=== PATIENT | male | born 1950 | race Caucasian/White ===

== ENCOUNTER 2016-08-06 10:28 | Inpatient (IN) | payer MEDICAID ==
[2016-08-06] MEDS ORDERED: ZOFRAN IV ONE (11:15)
[2016-08-06] MEDS ORDERED: MORPHINE IV ONE (11:15)
[2016-08-06] MEDS ORDERED: NITRO-BID 2% TP ONE (11:15)
--- NOTE | 2016-08-06 11:23 | Emergency Department Report ---
HPI - General Chief Complaint: Chest Pain Time Seen by Provider: 08/06/16 11:02 - [facility] HPI: Room 23 The patient is a 66-year-old male presenting with a chief complaint of chest pain. The patient states he developed substernal chest pressure when he began walking to his backyard. Patient states she became short of breath and diaphoretic with pressure. Patient denies nausea or vomiting. Patient states he felt like he was going to pass out but never lost consciousness. Patient states he sat down and rested began to feel better. The patient got up to walk to his room in the chest pressure restarted. EMS was called and the patient was transported to the ED. The patient states he still has slight chest pain currently gives a score of 2-3/10. Patient denies ever having a stress test or cardiac catheterization Location: Substernal chest Duration: Intermittent since this morning Quality: Pressure Severity:2-3/10 Modifying factors: [see above] Context: [see above] Mode of transportation: [not driving] ED Past Medical Hx - Past Medical History Previous Medical History?: Yes Hx Hypertension: Yes Hx Diabetes: Yes Additional medical history: high chol. psoriasis. Obstructive sleep apnea on CPAP - Surgical History Past Surgical History?: No - Family History Family history: no significant - Social History Smoking Status: Never Smoker Substance Use Type: None ED Review of Systems ROS: Stated complaint: CHEST PAIN/SOB Other details as noted in HPI Comment: All other systems reviewed and negative Constitutional: diaphoresis Eyes: denies: eye pain, eye discharge, vision change ENT: denies: ear pain, throat pain Respiratory: shortness of breath Cardiovascular: chest pain Endocrine: no symptoms reported Gastrointestinal: denies: abdominal pain, nausea, diarrhea Genitourinary: denies: urgency, dysuria Musculoskeletal: denies: back pain, joint swelling, arthralgia Skin: denies: rash, lesions Neurological: denies: headache, weakness, paresthesias Psychiatric: denies: anxiety, depression Hematological/Lymphatic: denies: easy bleeding, easy bruising Physical Exam - Physical Exam Vital Signs: Vital Signs 08/06/16 10:55 Temperature 98.1 F Pulse Rate 117 H Respiratory 26 H Rate Blood Pressure 130/84 O2 Sat by Pulse 92 Oximetry Physical Exam: GENERAL: The patient is well-developed well-nourished male sitting on stretcher not appearing to be in acute distress. [] HEENT: Normocephalic. Atraumatic. Extraocular motions are intact. Patient has moist mucous membranes. NECK: Supple. Trachea midline CHEST/LUNGS: Clear to auscultation. There is no respiratory distress noted. HEART/CARDIOVASCULAR: Regular. There is tachycardia. There is no gallop rub or murmur. ABDOMEN: Abdomen is soft, nontender. Patient has normal bowel sounds. There is no abdominal distention. SKIN: There is no rash. There is no edema. There is no diaphoresis. NEURO: The patient is awake, alert, and oriented. The patient is cooperative. The patient has normal speech MUSCULOSKELETAL: There is no evidence of acute injury. ED Course Vital Signs 08/06/16 10:55 Temperature 98.1 F Pulse Rate 117 H Respiratory 26 H Rate Blood Pressure 130/84 O2 Sat by Pulse 92 Oximetry ED Medical Decision Making - Lab Data Result diagrams: 08/06/16 11:07 08/06/16 11:07 Laboratory Tests 08/06/16 08/06/16 08/06/16 11:07 11:07 11:07 WBC 11.0 RBC 5.47 H Hgb 17.0 H Hct 51.2 H MCV 94 MCH 31 MCHC 33 RDW 13.8 Plt Count 184 Lymph % (Auto) 10.2 L [place] % (Auto) 7.9 H Eos % (Auto) 0.6 Baso % (Auto) 0.6 Lymph # 1.1 L [place] # 0.9 H Eos # 0.1 Baso # 0.1 Seg Neutrophils % 80.7 H Seg Neutrophils # 8.9 H PT 13.6 INR 1.05 APTT 24.6 D-Dimer Carbon Dioxide 22 BUN 17 Creatinine 1.0 Estimated GFR > 60 BUN/Creatinine Ratio 17.00 Glucose 287 H Calcium 8.9 Total Creatine Kinase CK-MB (CK-2) CK-MB (CK-2) Rel Index Troponin T 0.065 H NT-Pro-B Natriuret Pep Triglycerides 74 Cholesterol 161 LDL Cholesterol Direct 88 HDL Cholesterol 59 Cholesterol/HDL Ratio 2.72 08/06/16 08/06/16 08/06/16 11:07 11:07 11:15 WBC RBC Hgb Hct MCV MCH MCHC RDW Plt Count Lymph % (Auto) [place] % (Auto) Eos % (Auto) Baso % (Auto) Lymph # [place] # Eos # Baso # Seg Neutrophils % Seg Neutrophils # PT INR APTT D-Dimer 2012 H Carbon Dioxide BUN Creatinine Estimated GFR BUN/Creatinine Ratio Glucose Calcium Total Creatine Kinase 126 CK-MB (CK-2) 2.5 CK-MB (CK-2) Rel Index 1.9 Troponin T NT-Pro-B Natriuret Pep 18.43 Triglycerides Cholesterol LDL Cholesterol Direct HDL Cholesterol Cholesterol/HDL Ratio Sodium 137, potassium 4.8, chloride 99.1 - EKG Data -: EKG Interpreted by Me EKG shows normal: sinus rhythm Rate: tachycardia (118 bpm) - EKG Data When compared to previous EKG there are: previous EKG unavailable - Radiology Data Radiology results: report reviewed (CT chest), image reviewed (CT chest) CT chest (received call from radiologist)-good-sized bilateral pulmonary emboli - Differential Diagnosis ACS, PE, pericarditis Critical care attestation.: If time is entered above; I have spent that time in minutes in the direct care of this critically ill patient, excluding procedure time. ED Disposition Clinical Impression: Chest pain, Bilateral pulmonary embolism Disposition: OP ADMITTED IP TO THIS HOSP Is pt being admited?: Yes Does the pt Need Aspirin: Yes Condition: Serious Instructions: Chest Pain (ED) Referrals: PRIMARY CARE, [Primary Care Provider] - 3-5 Days Time of Disposition: 14:55 (hospitalist notified)
[2016-08-06 11:25] LABS: Basophils % (Auto) 0.6 % (0.0-1.8); Eosinophils % (Auto) 0.6 % (0.0-4.3); Hematocrit 51.2 % (35.5-45.6); Mean Corpuscular HGB Conc 33 % (32-34); Mean Corpuscular Hemoglobin 31 pg (28-32); Mean Corpuscular Volume 94 fl (84-94); Platelet Count 184 K/mm3 (140-440); Red Blood Count 5.47 M/mm3 (3.65-5.03); Red Cell Distribution Width 13.8 % (13.2-15.2)
[2016-08-06 11:33] LABS: Anion Gap 20 mmol/L; Blood Urea Nitrogen 17 mg/dL (9-20); Calcium 8.9 mg/dL (8.4-10.2); Carbon Dioxide 22 mmol/L (22-30); Chloride 99.4 mmol/L (98-107); Glucose 287 mg/dL (75-100); Potassium 4.8 mmol/L (3.6-5.0); Sodium 137 mmol/L (137-145)
[2016-08-06 11:35] LABS: INR 1.05 (0.87-1.13); Partial Thromboplastin Time 24.6 Sec. (24.2-36.6)
--- NOTE | 2016-08-06 11:56 | XRay Report ---
AP CHEST: HISTORY: chest pain AP view of the chest demonstrates a normal mediastinal and cardiac contour with clear lungs and normal bony and soft tissue structures. IMPRESSION: Unremarkable AP chest.
[2016-08-06 12:03] LABS: Creatine Kinase MB 2.5 ng/mL (0.0-4.0)
[2016-08-06 12:04] LABS: Cholesterol 161 mg/dL (50-199); HDL Cholesterol 59 mg/dL (40-59); LDL Cholesterol,Direct 88 mg/dL (50-130); Triglycerides 74 mg/dL (2-149)
[2016-08-06] MEDS ORDERED: ASPIRIN PO ONE (12:06)
--- NOTE | 2016-08-06 12:08 | Admit Criteria Form ---
Admission Criteria Documentation: PULMONARY EMBOLISM Clinical Indications for Admission to Inpatient Care (Place 'X' for any and all applicable criteria): Admission is indicated by ANY ONE of the following 1,2,3,4,5 [ ]I. Onset of hypoxia [ ]II. Hemodynamic instability 5 [ ]III. Massive pulmonary embolism (eg, acute embolism causing sustained hypotension, pulselessness, or bradycardia)5 [ ]IV. Need for IV narcotics (eg, to treat dyspnea) [ ]V. Current use of home oxygen therapy [ ]. Active bleeding [ ]VII. Recent surgery [ ]VIII. Active peptic ulcer disease [ ]IX. Documented extensive thrombosis (eg, clot in vena cava or above iliofemoral bifurcation) [ ]X. Embolism while on anticoagulation [ ]XI. 6 [X ]XII. Appropriate monitoring and therapy cannot be provided in home or outpatient setting. [ ]XIII. Systemic or catheter-directed thrombolysis 5,7 [ ]XIV. Catheter embolectomy and fragmentation 6 [ ]XV. Vena cava filter placement5 [ ]XVI. Severely diminished cardiopulmonary reserve (eg, cor pulmonale, pulmonary hypertension) [ ]XVII. Severe renal failure (eg, GFR less than 30 mL/min/1.73m2 (0.5 mL/sec/ 1.73m2)) [ ]XVIII.Right ventricular dysfunction (eg, by echocardiogram) 6,11 [X ]XIX. Positive cardiac biomarker (eg, troponin T or I > 0.1 ng/mL (mcg/L), highly sensitive troponin I assay greater than 0.014 ng/mL (mcg/L), BNP or NT proBNP > assay threshold)5,8,9 [ ]XX. Known clotting abn or def (eg, liver disease, antithrombin III, protein C, or protein S abnormality) [ ]XXI. History of heparin-induced thrombocytopenia [ ]XXII. Inpatient admission required rather than observation care (Also use Pulmonary Embolism: Observation Care guideline as appropriate) because of ANY ONE of the following: [ ] a) Significant autoimmune (thrombocytopenia) or coagulopathic reaction occurs in response to anticoagulation [ ] b) Respiratory symptoms (eg, tachypnea, dyspnea) that are severe or persistent [ ] c) Other condition, treatment, or monitoring requiring inpatient admission Extended stay beyond goal length of stay may be needed for 3,28 [ ]a) Hemorrhage or recent surgery [ ]b) Recurrent thromboembolism [ ]c) Persistent hypoxemia [ ]d) Heparin-induced thrombocytopenia The original [facility] [employer] content created by [facility] [employer] has been revised. The portions of the content which have been revised are identified through the use of italic text or in bold, and [facility] (formerly [facility])[3] has neither reviewed nor approved the modified material. All other unmodified content is copyright [facility] [employer]. Please see references footnoted in the original [facility] edition 2016 Admission Criteria Met: Yes
[2016-08-06] MEDS ORDERED: NACL ONE (14:17)
--- NOTE | 2016-08-06 14:52 | Cat Scan Report ---
CTA CHEST: History: Chest pain, shortness of breath. Technique: Helical CT following IV contrast. Pulmonary embolus protocol. Sagittal and coronal reformatted images. Rotational MIP images. Findings: Contrast bolus is satisfactory. Large bilateral pulmonary emboli are identified extending from the distal main pulmonary arteries to the second and third order branches of both lungs. The right lower lobe appears most affected where occlusive emboli are identified. The thyroid gland, tracheobronchial tree, esophagus, heart, pericardium, aorta, lung su and bony thorax are unremarkable. Impression: Positive for pulmonary embolus. These findings were discussed with Dr. Rodriguez in the emergency department at 1445 hrs.
[2016-08-06] MEDS ORDERED: HEPARIN 10,000 UNITS/10 ML IV ONE (14:53)
[2016-08-06] MEDS ORDERED: HEPARIN/ 0.45% NACL-25,000 UNIT/500 ML 500 ML IV SCH (15:00)
[2016-08-06 15:16] LABS: Urine Drugs of Abuse Note Disclamer
--- NOTE | 2016-08-06 15:18 | History and Physical Report ---
History of Present Illness Date of examination: 08/06/16 Date of admission: 08/06/2016 Chief complaint: chest pain, SOB, near syncope History of present illness: Patient is 66 yo with diabetes, hypertension, hyperlipidemia,sleep apnea on home CPAP. He presents with 1 day history of with chest pain, SOB and near syncope. Chest pain is midsternal, etc. 10, no radiation, pain is pressure-like , worse on exertion. He also describes shortness of breath is also worse on exertion. In addition he had an episode during which he thought he was going to pass out. Because of combination of of symptoms he got worried and was brought to the emergency department for further evaluation. In emergency department CTA of the chest shows bilateral large pulmonary embolism. Discussed with head sawyer automatic Dr. Menchaca and Dr. Cornejo, [facility] S[facility]. He will ting taken to cath lab nurse for EKOS catheter placements and thrombolysis, and admitted to intensive care unit. Past History Past Medical History: diabetes, hypertension, hyperlipidemia, other (sleep apnea on home CPAP, psoriasis) Past Surgical History: tonsillectomy Social history: , smoking (no smoking), alcohol abuse (no alcohol), full code Family history: cancer Medications and Allergies Allergies Allergy/AdvReac Type Severity Reaction Status Date / Time No Known Allergies Allergy Unverified 08/06/16 10:55 Active Meds: Active Medications Heparin Sodium/Sodium Chloride (Heparin/ 0.45% Nacl-25,000 Unit/500 Ml) 500 mls @ 27 mls/hr IV TITR TJ; 1,350 UNITS/HR PRN Reason: Protocol Review of Systems All systems: negative (no fever, no cough, no abdominal pain, no dysuria, no headache,. All other systems reviewed and are negative) Exam - Physical Exam Narrative exam: Gen appearance: Not in acute distress, obese HEENT: Normocephalic,atraumatic Neck : supple, no JVD Lungs: Clear to auscultation bilaterally, no crackles or wheezes. Heart : S1 and S2 regular, tachy, no murmurs rubs or gallop, Abdomen: soft nontender, nondistended, normal bowel sounds Extremities: No edema, no clubbing or cyanosis, Neuro :awake alert oriented 3, no focal signs Psych :appropriate mood skin: diffuse psoriasis rash - Constitutional Vitals: Temp Pulse Resp BP Pulse Ox 98.1 F 110 H 23 120/86 94 08/06/16 10:55 08/06/16 13:16 08/06/16 13:16 08/06/16 13:16 08/06/16 13:16 Results - Labs CBC & Chem 7: 08/06/16 15:16 08/06/16 11:07 Labs: Abnormal lab results 08/06/16 08/06/16 08/06/16 Range/Units 11:07 11:07 11:15 RBC 5.47 H (3.65-5.03) M/mm3 Hgb 17.0 H (11.8-15.2) gm/dl Hct 51.2 H (35.5-45.6) % Lymph % (Auto) 10.2 L (13.4-35.0) % [place] % (Auto) 7.9 H (0.0-7.3) % Lymph # 1.1 L (1.2-5.4) K/mm3 [place] # 0.9 H (0.0-0.8) K/mm3 Seg Neutrophils % 80.7 H (40.0-70.0) % Seg Neutrophils # 8.9 H (1.8-7.7) K/mm3 D-Dimer 2013 H (0-234) ng/mlDDU Glucose 287 H (75-100) mg/dL Troponin T 0.065 H (0.00-0.029) ng/mL Assessment and Plan Bilateral large pulmonary embolism. Admit to ICU. Initially was to be admitted to telemetry, but after discussing with Dr. Cornejo, vascular surgery, patient will be admitted to ICU after getting EKOS catheter placement for thrombolysis. Started on heparin drip. Consulted Pulm and Vasc Surg. I informed and discussed case with Dr. Menchaca and vasc Surg. Get stat Echocardiogram Chest pain with elevated Troponin. May be due to pulmonary embolism. To r/o acute coronary syndrome Obtain serial Troponins. Aspirin given. consult cardiology. Diabetes mellitus type 2. Check fingerstick glucose every 6 hours. Home medication list is not available yet. Hypertension. Blood pressure is stable Hyperlipidemia. Cont home statins. Sleep apnea. Cont CPAP at night DVT prophylaxis. he is on Heparin drip Psoriasis Full code status.
[2016-08-06] MEDS ORDERED: ZOFRAN IV PRN ×2 (15:26→16:10)
[2016-08-06] MEDS ORDERED: TYLENOL PO PRN (15:26)
[2016-08-06] MEDS ORDERED: DULCOLAX PR PRN (15:26)
[2016-08-06] MEDS ORDERED: SODIUM CHLORIDE FLUSH SYRINGE 10 ML IV PRN (15:29)
[2016-08-06 15:32] LABS: Hemoglobin 17.1 gm/dl (11.8-15.2)
[2016-08-06 15:35] LABS: Bilirubin,Urine NEG (Negative); Blood,Urine NEG (Negative); Ketones,Urine NEG (Negative); Leukocyte Esterase,Urine NEG (Negative); Mucus,Urine FEW /HPF; Nitrite,Urine NEG (Negative); Protein,Urine <15 mg/dL mg/dL (Negative); Urobilinogen,Urine < 2.0 mg/dL (<2.0); WBC,Urine < 1.0 /HPF (0.0-6.0)
[2016-08-06 15:40] LABS: INR 1.08 (0.87-1.13)
[2016-08-06 15:41] LABS: Partial Thromboplastin Time 25.7 Sec. (24.2-36.6)
[2016-08-06] MEDS ORDERED: MORPHINE IV PRN ×2 (16:10)
[2016-08-06] MEDS ORDERED: HEPARIN/NS 5000 UNIT/500ML(CATH LAB) 1,000 ML IR ONE (16:10)
[2016-08-06] MEDS ORDERED: SODIUM CHLORIDE ONE (16:10)
[2016-08-06] MEDS ORDERED: HEPARIN ONE (16:10)
[2016-08-06] MEDS ORDERED: NORCO 5/325 PO PRN (16:10)
[2016-08-06] MEDS ORDERED: NACL 0.9% 1000 ML 3,000 ML ONE (16:11)
[2016-08-06] MEDS ORDERED: SUBLIMAZE ONE (16:11)
[2016-08-06] MEDS ORDERED: VERSED ONE (16:11)
[2016-08-06] MEDS ORDERED: XYLOCAINE 2% INFILTRATI ONE (16:11)
[2016-08-06] MEDS ORDERED: ANCEF/STERILE WATER 2 GM/20 ML 20 ML IV ONE (16:11)
[2016-08-06] MEDS ORDERED: HEPARIN 10,000 UNITS/10 ML ONE (16:11)
[2016-08-06] MEDS ORDERED: NACL 0.9% 1000 ML 1,000 ML EKOSCLUMEN SCH ×2 (17:00)
[2016-08-06] MEDS ORDERED: CATHFLO EKOSDLUMEN SCH (17:00)
[2016-08-06] MEDS ORDERED: NACL 0.9% EKOSDLUMEN SCH (17:00)
[2016-08-06] MEDS ORDERED: HEPARIN/ 0.45% NACL-25,000 UNIT/500 ML 500 ML SHEATH SCH ×2 (17:00)
[2016-08-06] MEDS ORDERED: NACL 0.9% 1000 ML 1,000 ML IV SCH (17:00)
[2016-08-06] MEDS ORDERED: NACL 0.9% 1000 ML 1,000 ML SHEATH SCH ×2 (17:00)
[2016-08-06] MEDS ORDERED: WATER FOR INJ (PF) 10 ML ONE (17:11)
[2016-08-06] MEDS: CATHFLO ONE ×2 (17:17→17:19)
[2016-08-06 17:26] LABS: Basophils % (Auto) 0.3 % (0.0-1.8); Eosinophils % (Auto) 0.5 % (0.0-4.3); Hematocrit 50.4 % (35.5-45.6); Hemoglobin 16.7 gm/dl (11.8-15.2); Mean Corpuscular HGB Conc 33 % (32-34); Mean Corpuscular Hemoglobin 31 pg (28-32); Mean Corpuscular Volume 94 fl (84-94); Platelet Count 186 K/mm3 (140-440); Red Blood Count 5.35 M/mm3 (3.65-5.03); Red Cell Distribution Width 13.9 % (13.2-15.2); White Blood Count 10.8 K/mm3 (4.5-11.0)
--- NOTE | 2016-08-06 17:32 | Operative Report ---
Operative Report Operative Report: EXAM: ULTRASOUND AND FLUOROSCOPIC GUIDED PLACEMENT OF BILATERAL PULMONARY EKOS CATHETERS, PULMONARY ANGIOGRAPHY CLINICAL INDICATION: PATIENT WITH SUB-MASSIVE PULMONARY EMBOLI BILATERALLY, CT EVIDENCE OF RIGHT HEART STRAIN, DIAPHORESIS AND TACHYCARDIA DATE: 08/06/2016 PROCEDURE: An explanation of the risks, benefits and alternatives; written informed consent was obtained. The patient was brought the angiographic suite and placed in supine position on the examination table. Initial ultrasound evaluation of the right groin demonstrated a patent right common femoral vein. The right groin was prepped and draped in the usual sterile fashion. 1% lidocaine was used for anesthesia. Under ultrasound guidance, a 7 cm 18-gauge needle was advanced into the femoral vein. A 0.035 guidewire was advanced centrally under fluoroscopy. The needle was removed. A second access site was chosen 1 cm inferior to the first access site and the 7 cm 18-gauge needle again advanced into the femoral vein. A 0.035 guidewire was advanced centrally under fluoroscopy. The needle was removed. A 6 [place] sheaths were placed over both guidewires and advanced to the groin. The trochars were removed and the sheaths flushed. A JR4 catheter and Allison guidewire were then manipulated centrally. The catheter and guidewire were manipulated under fluoroscopy through the right side of the heart into the main pulmonary artery. Catheter and guidewire were then manipulated into the right main pulmonary artery. Digital subtraction angiography was performed at this point for anatomic localization only. The guidewire was then advanced into a right lower lobe pulmonary artery. The catheter was removed and a 12 cm infusion length 106 cm total length EKOS catheter was placed over the guidewire and advanced into the right lower lobe pulmonary artery to extend into the right main pulmonary artery. The infusion wire was then placed. The sheath and catheter were then securely fasten the skin surface 2-0 Ethilon suture. A JR4 and a second Allison guidewire were then manipulated centrally. The catheter and guidewire were manipulated under fluoroscopy through the right- sided of the heart into the main pulmonary artery. The catheter and guidewire were then manipulated into the left main pulmonary artery. Digital subtraction angiography was performed at this point for anatomic localization only. The catheter and guidewire were then advanced with left lower lobe pulmonary artery. The catheter was removed and a 12 cm infusion length 106 cm length EKOS catheter was placed over the guidewire and advanced into the left lower lobe pulmonary artery and extending proximally to the left main pulmonary artery. The sheath and catheter were then securely fastened to the skin surface using 2-0 Ethilon suture. Sterile dressings were then applied. The catheters were then primed with 2 mg of TPA and 2000 units of heparin to the sheath. The catheters were then connected to the EKOS infusion pumps. The patient tolerated the procedure well. There were no immediate post procedure competitions. Conscious sedation was performed under the guidance of radiologic nursing. Continuous cardiopulmonary monitoring was utilized. IMPRESSION: 1) Ultrasound and fluoroscopic guided placement of bilateral pulmonary EKOS catheters, pulmonary angiography performed prior to the placement of these catheters for anatomic localization.
[2016-08-06 17:39] LABS: INR 1.16 (0.87-1.13)
[2016-08-06 17:53] LABS: Anion Gap 17 mmol/L; BUN/Creatinine Ratio 13.63; Blood Urea Nitrogen 15 mg/dL (9-20); Carbon Dioxide 25 mmol/L (22-30); Chloride 99.3 mmol/L (98-107); Glucose 138 mg/dL (75-100); Potassium 4.6 mmol/L (3.6-5.0); Sodium 137 mmol/L (137-145)
[2016-08-06 17:55] LABS: Creatine Kinase MB 3.5 ng/mL (0.0-4.0)
[2016-08-06] MEDS: NACL 0.9% 1000 ML 1,000 ML IV SCH (19:30)
[2016-08-06] MEDS: MORPHINE IV PRN (20:23)
[2016-08-06 21:32] LABS: Basophils % (Auto) 0.2 % (0.0-1.8); Eosinophils % (Auto) 0.5 % (0.0-4.3); Hematocrit 50.4 % (35.5-45.6); Hemoglobin 16.2 gm/dl (11.8-15.2); Mean Corpuscular HGB Conc 32 % (32-34); Mean Corpuscular Hemoglobin 30 pg (28-32); Mean Corpuscular Volume 94 fl (84-94); Platelet Count 188 K/mm3 (140-440); Red Blood Count 5.36 M/mm3 (3.65-5.03); Red Cell Distribution Width 13.8 % (13.2-15.2); White Blood Count 12.4 K/mm3 (4.5-11.0)
[2016-08-07] MEDS: MORPHINE IV PRN (03:28)
[2016-08-07] MEDS: NACL 0.9% 1000 ML 1,000 ML IV SCH ×2 (03:29→18:17)
[2016-08-07 05:04] LABS: Basophils % (Auto) 0.5 % (0.0-1.8); Eosinophils % (Auto) 1.6 % (0.0-4.3); Hematocrit 46.7 % (35.5-45.6); Hemoglobin 15.3 gm/dl (11.8-15.2); Mean Corpuscular HGB Conc 33 % (32-34); Mean Corpuscular Hemoglobin 31 pg (28-32); Mean Corpuscular Volume 94 fl (84-94); Platelet Count 167 K/mm3 (140-440); Red Blood Count 4.97 M/mm3 (3.65-5.03); Red Cell Distribution Width 13.7 % (13.2-15.2); White Blood Count 10.1 K/mm3 (4.5-11.0)
[2016-08-07 05:23] LABS: Blood Urea Nitrogen 15 mg/dL (9-20); Calcium 7.9 mg/dL (8.4-10.2); Carbon Dioxide 22 mmol/L (22-30); Chloride 103.9 mmol/L (98-107); Glucose 140 mg/dL (75-100); Potassium 4.3 mmol/L (3.6-5.0); Sodium 141 mmol/L (137-145)
[2016-08-07 05:24] LABS: Anion Gap 19 mmol/L
--- NOTE | 2016-08-07 08:09 | Progress Note ---
Assessment and Plan Assessment and plan: Bilateral large pulmonary embolism. Admitted to ICU after getting EKOS catheter placement for thrombolysis. Continue heparin drip and Alteplase. Discussed with nurse at bedside Chest pain with elevated Troponin, may be due to pulmonary embolism. To r/o acute coronary syndrome Obtain serial Troponins. Aspirin given. consulted cardiology. Diabetes mellitus type 2. Check fingerstick glucose every 6 hours. Home medication list is not available yet. Hypertension. Blood pressure is stable Hyperlipidemia. Cont home statins. Sleep apnea. Cont CPAP at night DVT prophylaxis. Cont Heparin drip Psoriasis Full code status. History Interval history: Patient with bilateral pulmonary embolism had EKOS catheter placement yesterday , thrombolysis minimal chest pain, less shortness of breath Hospitalist Physical - Physical exam Narrative exam: Gen appearance: Not in acute distress, obese HEENT: Normocephalic,atraumatic Neck : supple, no JVD Lungs: Clear to auscultation bilaterally, no crackles or wheezes. Heart : S1 and S2 regular, tachy, no murmurs rubs or gallop, Abdomen: soft nontender, nondistended, normal bowel sounds Extremities: No edema, no clubbing or cyanosis, Neuro :awake alert oriented 3, no focal signs Psych :appropriate mood skin: diffuse psoriasis rash - Constitutional Vitals: Temp Pulse Resp BP Pulse Ox 98.7 F 97 H 20 101/72 91 08/07/16 03:48 08/07/16 07:58 08/07/16 07:58 08/07/16 07:58 08/07/16 07:58 Results - Labs CBC & Chem 7: 08/07/16 10:21 08/07/16 04:46 Labs: Laboratory Last Values WBC 10.1 K/mm3 (4.5-11.0) 08/07/16 04:46 RBC 4.97 M/mm3 (3.65-5.03) 08/07/16 04:46 Hgb 15.3 gm/dl (11.8-15.2) H 08/07/16 04:46 Hct 46.7 % (35.5-45.6) H 08/07/16 04:46 MCV 94 fl (84-94) 08/07/16 04:46 MCH 31 pg (28-32) 08/07/16 04:46 MCHC 33 % (32-34) 08/07/16 04:46 RDW 13.7 % (13.2-15.2) 08/07/16 04:46 Plt Count 167 K/mm3 (140-440) 08/07/16 04:46 Lymph % (Auto) 20.3 % (13.4-35.0) 08/07/16 04:46 [place] % (Auto) 12.0 % (0.0-7.3) H 08/07/16 04:46 Eos % (Auto) 1.6 % (0.0-4.3) 08/07/16 04:46 Baso % (Auto) 0.5 % (0.0-1.8) 08/07/16 04:46 Lymph # 2.0 K/mm3 (1.2-5.4) 08/07/16 04:46 [place] # 1.2 K/mm3 (0.0-0.8) H 08/07/16 04:46 Eos # 0.2 K/mm3 (0.0-0.4) 08/07/16 04:46 Baso # 0.0 K/mm3 (0.0-0.1) 08/07/16 04:46 Seg Neutrophils % 65.6 % (40.0-70.0) 08/07/16 04:46 Seg Neutrophils # 6.6 K/mm3 (1.8-7.7) 08/07/16 04:46 PT 14.7 Sec. (12.2-14.9) 08/06/16 17:00 INR 1.16 (0.87-1.13) H 08/06/16 17:00 APTT 96.0 Sec. (24.2-36.6) H* 08/06/16 17:00 Fibrinogen 288 mg/dl (211-480) 08/07/16 04:46 D-Dimer 2013 ng/mlDDU (0-234) H 08/06/16 11:15 Heparin Anti-Xa Level 0.54 U.I./ml (0.3-0.7) 08/07/16 04:46 Sodium 141 mmol/L (137-145) 08/07/16 04:46 Potassium 4.3 mmol/L (3.6-5.0) 08/07/16 04:46 Chloride 103.9 mmol/L (98-107) 08/07/16 04:46 Carbon Dioxide 22 mmol/L (22-30) 08/07/16 04:46 Anion Gap 19 mmol/L 08/07/16 04:46 BUN 15 mg/dL (9-20) 08/07/16 04:46 Creatinine 1.0 mg/dL (0.8-1.5) 08/07/16 04:46 Estimated GFR > 60 ml/min 08/07/16 04:46 BUN/Creatinine Ratio 15.00 % 08/07/16 04:46 Glucose 140 mg/dL (75-100) H 08/07/16 04:46 Calcium 7.9 mg/dL (8.4-10.2) L 08/07/16 04:46 Total Creatine Kinase 127 units/L (55-170) 08/06/16 17:00 CK-MB (CK-2) 3.5 ng/mL (0.0-4.0) 08/06/16 17:00 CK-MB (CK-2) Rel Index 2.7 (0-4) 08/06/16 17:00 Troponin T 0.103 ng/mL (0.00-0.029) H* 08/06/16 17:00 NT-Pro-B Natriuret Pep 18.43 pg/mL (0-900) 08/06/16 11:07 Triglycerides 74 mg/dL (2-149) 08/06/16 11:07 Cholesterol 161 mg/dL (50-199) 08/06/16 11:07 LDL Cholesterol Direct 88 mg/dL (50-130) 08/06/16 11:07 HDL Cholesterol 59 mg/dL (40-59) 08/06/16 11:07 Cholesterol/HDL Ratio 2.72 % 08/06/16 11:07 Urine Color Yellow (Yellow) 08/06/16 15:00 Urine Turbidity Clear (Clear) 08/06/16 15:00 Urine pH 5.0 (5.0-7.0) 08/06/16 15:00 Ur Specific [place] 1.035 (1.003-1.030) H 08/06/16 15:00 Urine Protein <15 mg/dl mg/dL (Negative) 08/06/16 15:00 Urine Glucose (UA) 50 mg/dL (Negative) 08/06/16 15:00 Urine Ketones Neg mg/dL (Negative) 08/06/16 15:00 Urine Blood Neg (Negative) 08/06/16 15:00 Urine Nitrite Neg (Negative) 08/06/16 15:00 Urine Bilirubin Neg (Negative) 08/06/16 15:00 Urine Urobilinogen < 2.0 mg/dL (<2.0) 08/06/16 15:00 Ur Leukocyte Esterase Neg (Negative) 08/06/16 15:00 Urine WBC (Auto) < 1.0 /HPF (0.0-6.0) 08/06/16 15:00 Urine RBC (Auto) 2.0 /HPF (0.0-6.0) 08/06/16 15:00 Urine Mucus Few /HPF 08/06/16 15:00 Urine Opiates Screen Presumptive positive 08/06/16 15:00 Urine Methadone Screen Presumptive negative 08/06/16 15:00 Ur Barbiturates Screen Presumptive negative 08/06/16 15:00 Ur Phencyclidine Scrn Presumptive negative 08/06/16 15:00 Ur Amphetamines Screen Presumptive negative 08/06/16 15:00 U Benzodiazepines Scrn Presumptive negative 08/06/16 15:00 Urine Cocaine Screen Presumptive negative 08/06/16 15:00 U Marijuana (THC) Screen Presumptive negative 08/06/16 15:00 Drugs of Abuse Note Disclamer 08/06/16 15:00
--- NOTE | 2016-08-07 08:18 | Vascular Lab Report ---
MISCELLANEOUS VESSEL IDENTIFICATION: COMMENTS ON THE SCAN: The right common femoral vein was identified and under real-time ultrasound guidance was cannulated. IMPRESSION: Successful ultrasound guided vein cannulation.
[2016-08-07] MEDS ORDERED: ECOTRIN PO SCH (10:00)
[2016-08-07] MEDS ORDERED: ANCEF/STERILE WATER 2 GM/20 ML 20 ML IV ONE (10:42)
[2016-08-07] MEDS ORDERED: SUBLIMAZE ONE (10:42)
[2016-08-07] MEDS ORDERED: VERSED ONE (10:42)
[2016-08-07 10:44] LABS: Basophils % (Auto) 0.5 % (0.0-1.8); Eosinophils % (Auto) 2.2 % (0.0-4.3); Hematocrit 48.8 % (35.5-45.6); Hemoglobin 15.7 gm/dl (11.8-15.2); Mean Corpuscular HGB Conc 32 % (32-34); Mean Corpuscular Hemoglobin 31 pg (28-32); Mean Corpuscular Volume 95 fl (84-94); Platelet Count 137 K/mm3 (140-440); Red Blood Count 5.16 M/mm3 (3.65-5.03); Red Cell Distribution Width 13.8 % (13.2-15.2); White Blood Count 8.9 K/mm3 (4.5-11.0)
--- NOTE | 2016-08-07 10:45 | Consultation ---
History of Present Illness Consult date: 08/07/16 Requesting physician: OSCAR MCDERMTOT Reason for consult: chest pain, hypoxemia, pulmonary embolism History of present illness: Called yesterday by IMS for consult on patient with large PE. Hemodynamically stable with good sats. I requested that they obtain a stat echo and consult vascular for possible EKOS. Patient seen by vascular and taken to cathead worker for EKOS placement. Transitioned to the ICU and has now been taken back to the cathead worker for removal of catheters. Overnight, no complaints. Still had some chest pain, per nurse 1 on a scale of 1-10. Currently in cathead worker now. Past History Past Medical History: diabetes, hypertension, hyperlipidemia, other (sleep apnea on home CPAP, psoriasis) Past Surgical History: tonsillectomy Social history: , smoking (no smoking), alcohol abuse (no alcohol), full code Family history: cancer Medications and Allergies Allergies Allergy/AdvReac Type Severity Reaction Status Date / Time No Known Allergies Allergy Unverified 08/06/16 10:55 Home Medications Medication Instructions Recorded Confirmed Last Taken Type Benazepril (Nf) 20 mg PO 08/07/16 Unknown History Clobetasol 0.05% 08/07/16 Unknown History Fluticasone [Flonase] 08/07/16 Unknown History Hydroxyzine HCl [hydrOXYzine] 25 mg PO PRN 08/07/16 Unknown History Methotrexate Sodium [Trexall] 7.5 mg PO QWEEK 08/07/16 08/07/16 Unknown History Pravastatin Sodium [Pravastatin] 20 mg DAILY 08/07/16 08/07/16 Unknown History glipiZIDE [Glucotrol] 5 mg PO QDAY 08/07/16 08/07/16 Unknown History metFORMIN [Glucophage] 500 mg PO BID 08/07/16 08/07/16 Unknown History Active Meds: Active Medications Acetaminophen (Tylenol) 650 mg PO Q4H PRN PRN Reason: Pain MILD(1-3)/Fever >100.5/MATA Acetaminophen/Hydrocodone Bitart ([place] 5/325) 2 each PO Q6H PRN PRN Reason: Pain, Moderate (4-6) Aspirin (Ecotrin) 325 mg PO QDAY TJ Last Admin: 08/07/16 09:34 Dose: 325 mg Bisacodyl (Dulcolax) 10 mg HI QDAY PRN PRN Reason: Constipation unrelieved by MOM Heparin Sodium/Sodium Chloride (Heparin/ 0.45% Nacl-25,000 Unit/500 Ml) 500 mls @ 27 mls/hr IV TITR TJ; 1,350 UNITS/HR PRN Reason: Protocol Last Admin: 08/06/16 15:40 Dose: 27 mls/hr Heparin Sodium/Sodium Chloride (Heparin/ 0.45% Nacl-25,000 Unit/500 Ml) 500 mls @ 10 mls/hr SHEATH DIRECT TJ; 500 UNITS/HR PRN Reason: Protocol Last Admin: 08/06/16 16:56 Dose: 1,000 mls Heparin Sodium/Sodium Chloride (Heparin/ 0.45% Nacl-25,000 Unit/500 Ml) 500 mls @ 10 mls/hr SHEATH DIRECT TJ; 500 UNITS/HR PRN Reason: Protocol Sodium Chloride (Nacl 0.9% 1000 Ml) 1,000 mls @ 125 mls/hr IV DIRECT TJ Last Admin: 08/07/16 03:29 Dose: 125 mls/hr Sodium Chloride (Nacl 0.9% 1000 Ml) 1,000 mls @ 30 mls/hr IV DIRECT TJ Sodium Chloride (Nacl 0.9% 1000 Ml) 1,000 mls @ 30 mls/hr SHEATH DIRECT TJ Last Admin: 08/06/16 17:09 Dose: 1,000 mls Sodium Chloride (Nacl 0.9% 1000 Ml) 1,000 mls @ 35 mls/hr EKOSCLUMEN DIRECT TJ Last Admin: 08/06/16 16:59 Dose: 1,000 mls Sodium Chloride (Nacl 0.9% 1000 Ml) 1,000 mls @ 30 mls/hr SHEATH DIRECT TJ Sodium Chloride (Nacl 0.9% 1000 Ml) 1,000 mls @ 35 mls/hr EKOSCLUMEN DIRECT TJ Alteplase, Recombinant 10 mg/ (Sodium Chloride) 250 mls @ 12.5 mls/hr EKOSDLUMEN DIRECT TJ PRN Reason: 0.5 MG/HR Last Admin: 08/06/16 17:16 Dose: 250 mls Alteplase, Recombinant 10 mg/ (Sodium Chloride) 250 mls @ 12.5 mls/hr EKOSDLUMEN DIRECT TJ PRN Reason: 0.5 MG/HR Last Admin: 08/06/16 17:17 Dose: 250 mls Morphine Sulfate (Morphine) 2 mg IV Q4H PRN PRN Reason: Pain, Moderate (4-6) Morphine Sulfate (Morphine) 4 mg IV Q4H PRN PRN Reason: Pain , Severe (7-10) Ondansetron HCl (Zofran) 4 mg IV Q8H PRN PRN Reason: Nausea And Vomiting Sodium Chloride (Sodium Chloride Flush Syringe 10 Ml) 10 ml IV PRN PRN PRN Reason: LINE FLUSH Physical Examination Vital signs: Vital Signs Pulse Resp BP Pulse Ox 114 H 25 H 130/84 93 08/06/16 10:45 08/06/16 10:45 08/06/16 10:45 08/06/16 10:45 Results - Laboratory Findings CBC and BMP: 08/07/16 04:46 08/07/16 04:46 PT/INR, D-dimer PT 14.7 Sec. (12.2-14.9) 08/06/16 17:00 INR 1.16 (0.87-1.13) H 08/06/16 17:00 D-Dimer 2013 ng/mlDDU (0-234) H 08/06/16 11:15 Abnormal lab findings: Abnormal Labs 08/06/16 08/06/16 08/06/16 11:07 11:07 11:15 WBC RBC 5.47 H Hgb 17.0 H Hct 51.2 H Lymph % (Auto) 10.2 L [place] % (Auto) 7.9 H Lymph # 1.1 L [place] # 0.9 H Seg Neutrophils % 80.7 H Seg Neutrophils # 8.9 H INR APTT D-Dimer 2013 H Heparin Anti-Xa Level Glucose 287 H Calcium Troponin T 0.065 H Ur Specific [place] 08/06/16 08/06/16 08/06/16 14:45 15:00 15:16 WBC RBC Hgb 17.1 H Hct 52.0 H Lymph % (Auto) [place] % (Auto) Lymph # [place] # Seg Neutrophils % Seg Neutrophils # INR APTT D-Dimer Heparin Anti-Xa Level Glucose Calcium Troponin T 0.096 H Ur Specific [place] 1.035 H 08/06/16 08/06/16 08/06/16 17:00 17:00 17:00 WBC RBC 5.35 H Hgb 16.7 H Hct 50.4 H Lymph % (Auto) [place] % (Auto) 10.4 H Lymph # [place] # 1.1 H Seg Neutrophils % Seg Neutrophils # INR 1.16 H APTT 96.0 H* D-Dimer Heparin Anti-Xa Level Glucose Calcium Troponin T 0.103 H* Ur Specific [place] 08/06/16 08/06/16 08/06/16 17:00 21:10 21:15 WBC 12.4 H RBC 5.36 H Hgb 16.2 H Hct 50.4 H Lymph % (Auto) [place] % (Auto) 10.3 H Lymph # [place] # 1.3 H Seg Neutrophils % 71.4 H Seg Neutrophils # 8.8 H INR APTT D-Dimer Heparin Anti-Xa Level 1.07 H Glucose 138 H Calcium Troponin T Ur Specific [place] 08/07/16 08/07/16 04:46 04:46 WBC RBC Hgb 15.3 H Hct 46.7 H Lymph % (Auto) [place] % (Auto) 12.0 H Lymph # [place] # 1.2 H Seg Neutrophils % Seg Neutrophils # INR APTT D-Dimer Heparin Anti-Xa Level Glucose 140 H Calcium 7.9 L Troponin T Ur Specific [place] - Diagnostic Findings CT scan - chest: image reviewed (large bilateral pulmonary emboli seen) Assessment and Plan 66 y/o male with bilateral pulmonary emboli 1. EKOS 2. Anticoagulation 3. Will need hypercoag work up 4. Continue ICU monitoring post removal of catheter
[2016-08-07] MEDS: XYLOCAINE 1%/ EPI 1:100,000 INFILTRATI ONE ×2 (11:04→11:25)
[2016-08-07] MEDS: HEPARIN/NS 5000 UNIT/500ML(CATH LAB) 500 ML IR ONE ×2 (11:05→11:25)
--- NOTE | 2016-08-07 12:42 | Operative Report ---
Operative Report Operative Report: Date of Procedure: 08/07/2016 Pre-operative Diagnosis: Pulmonary Embolus Status Post Thrombolysis Post-operative Diagnosis: Same Procedure(s): 1. Removal of Bilateral Pulmonary Artery Thrombolysis Catheters 2. Completion Thoracic Aortogram 3. Radiologic Supervision with Interpretation Surgeon: Gildardo Perez M.D. Hotel Housekeeper: None Anesthesia: 2% lidocaine without epi EBL: Minimal Counts: Correct Complications: None Condition: Stable Findings: Successful removal of bilateral thrombolysis catheters. Specimen: None Indication: The patient is a 66-year-old male who presented to the emergency department with symptomatic bilateral pulmonary emboli. He underwent thrombolysis overnight and is in need of removal of the catheters. He was given the risks, benefits, and alternative procedures and consented to proceed. Description of Procedure: The patient was brought to the lab support tech and laid in supine position. After anesthetizing the skin with thrombolysis catheter was removed leaving the sheath in place and a 035 Bentson wire was advanced through the catheter. The sheath was removed and a pigtail catheter was placed in the main pulmonary artery. A pulmonary arteriogram was performed that demonstrated no appreciable residual thrombus within bilateral pulmonary arteries. The Bentson wire was readvanced and the pigtail catheter was removed and the wire was removed as well. The remaining thrombolysis catheter and sheath were removed. Both groin sheaths were then removed and pressure was held to achieve hemostasis. The patient tolerated the procedure well. All sponge, needle, and instrument counts were correct. The patient was taken to the recovery area in stable condition.
--- NOTE | 2016-08-07 14:22 | Consultation ---
History of Present Illness Consult date: 08/07/16 Consult reason: elevated troponin History of present illness: This is a 66yr old male who presented with shortness of breath and chest pain admitted with bilateral pulmonary embolus found on CT chest. He is currently in CCU post EKOS catheter. Cardiac consultation requested for nonspecific elevated troponin. Patient reports a history of diabetes and hypertension. Patient denies prior history of coronary disease. ECG shows a sinus rhythm. No acute ischemic changes. Past History Past Medical History: diabetes, hypertension, hyperlipidemia, other (sleep apnea on home CPAP, psoriasis) Past Surgical History: tonsillectomy Social history: , smoking (no smoking), alcohol abuse (no alcohol), full code Family history: cancer Medications and Allergies Allergies Allergy/AdvReac Type Severity Reaction Status Date / Time No Known Allergies Allergy Unverified 08/06/16 10:55 Home Medications Medication Instructions Recorded Confirmed Last Taken Type Benazepril (Nf) 20 mg PO DAILY 08/07/16 08/07/16 Unknown History Cetirizine HCl 5 mg PO DAILY PRN 08/07/16 08/07/16 Unknown History Clobetasol 0.05% 08/07/16 Unknown History Fluticasone [Flonase] 08/07/16 Unknown History Hydroxyzine HCl [hydrOXYzine] 25 mg PO PRN 08/07/16 Unknown History Loratadine 10 mg PO BID 08/07/16 08/07/16 Unknown History Methotrexate Sodium [Trexall] 7.5 mg PO QWEEK 08/07/16 08/07/16 Unknown History Pravastatin Sodium [Pravastatin] 20 mg DAILY 08/07/16 08/07/16 Unknown History Prednisone 5 mg PO 1XW 08/07/16 08/07/16 Unknown History glipiZIDE [Glucotrol] 5 mg PO QDAY 08/07/16 08/07/16 Unknown History metFORMIN [Glucophage] 500 mg PO BID 08/07/16 08/07/16 Unknown History Active Meds: Active Medications Acetaminophen (Tylenol) 650 mg PO Q4H PRN PRN Reason: Pain MILD(1-3)/Fever >100.5/MATA Acetaminophen/Hydrocodone Bitart ([place] 5/325) 2 each PO Q6H PRN PRN Reason: Pain, Moderate (4-6) Aspirin (Ecotrin) 325 mg PO QDAY TJ Last Admin: 08/07/16 09:34 Dose: 325 mg Bisacodyl (Dulcolax) 10 mg SC QDAY PRN PRN Reason: Constipation unrelieved by MOM Sodium Chloride (Nacl 0.9% 1000 Ml) 1,000 mls @ 125 mls/hr IV DIRECT [facility] Last Admin: 08/07/16 03:29 Dose: 125 mls/hr Morphine Sulfate (Morphine) 2 mg IV Q4H PRN PRN Reason: Pain, Moderate (4-6) Morphine Sulfate (Morphine) 4 mg IV Q4H PRN PRN Reason: Pain , Severe (7-10) Ondansetron HCl (Zofran) 4 mg IV Q8H PRN PRN Reason: Nausea And Vomiting Rivaroxaban (Xarelto) 15 mg PO BIDDIAB TJ PRN Reason: Protocol Sodium Chloride (Sodium Chloride Flush Syringe 10 Ml) 10 ml IV PRN PRN PRN Reason: LINE FLUSH Physical Examination Vital Signs Pulse Resp BP Pulse Ox 114 H 25 H 130/84 93 08/06/16 10:45 08/06/16 10:45 08/06/16 10:45 08/06/16 10:45 General appearance: no acute distress HEENT: Positive: PERRL Neck: Positive: trachea midline Cardiac: Positive: Reg Rate and Rhythm Lungs: Positive: Decreased Breath Sounds Results 08/07/16 10:21 08/07/16 04:46 Cardiac Enzymes 08/06/16 Range/Units 17:00 CK-MB (CK-2) 3.5 (0.0-4.0) ng/mL Coagulation 08/06/16 08/06/16 Range/Units 15:16 17:00 PT 13.9 14.7 (12.2-14.9) Sec. INR 1.08 1.16 H (0.87-1.13) APTT 25.7 96.0 H* (24.2-36.6) Sec. CBC 08/06/16 08/06/16 08/06/16 Range/Units 15:16 17:00 21:15 WBC 10.8 12.4 H (4.5-11.0) K/mm3 RBC 5.35 H 5.36 H (3.65-5.03) M/mm3 Hgb 17.1 H 16.7 H 16.2 H (11.8-15.2) gm/dl Hct 52.0 H 50.4 H 50.4 H (35.5-45.6) % Plt Count 175 186 188 (140-440) K/mm3 Lymph # 2.2 2.2 (1.2-5.4) K/mm3 [place] # 1.1 H 1.3 H (0.0-0.8) K/mm3 Eos # 0.1 0.1 (0.0-0.4) K/mm3 Baso # 0.0 0.0 (0.0-0.1) K/mm3 08/07/16 08/07/16 Range/Units 04:46 10:21 WBC 10.1 8.9 (4.5-11.0) K/mm3 RBC 4.97 5.16 H (3.65-5.03) M/mm3 Hgb 15.3 H 15.7 H (11.8-15.2) gm/dl Hct 46.7 H 48.8 H (35.5-45.6) % Plt Count 167 137 L (140-440) K/mm3 Lymph # 2.0 2.2 (1.2-5.4) K/mm3 [place] # 1.2 H 1.0 H (0.0-0.8) K/mm3 Eos # 0.2 0.2 (0.0-0.4) K/mm3 Baso # 0.0 0.0 (0.0-0.1) K/mm3 Comprehensive Metabolic Panel 08/06/16 08/07/16 Range/Units 17:00 04:46 Sodium 137 141 (137-145) mmol/L Potassium 4.6 4.3 (3.6-5.0) mmol/L Chloride 99.3 103.9 (98-107) mmol/L Carbon Dioxide 25 22 (22-30) mmol/L BUN 15 15 (9-20) mg/dL Creatinine 1.1 1.0 (0.8-1.5) mg/dL Glucose 138 H 140 H (75-100) mg/dL Calcium 9.0 7.9 L (8.4-10.2) mg/dL
[2016-08-07] MEDS ORDERED: XARELTO PO SCH (17:00)
--- NOTE | 2016-08-07 17:50 | Echocardiography Report ---
Transthoracic Echocardiogram Indication: Pulmonary Embolism BP: 123/71 Conclusions *1. Normal LV function, EF 55-60%. *2. Mild conc LVH. *3. Trace MR. *4. R heart chambers not well visualized. Findings Procedure Info: The study quality is technically difficult. The study is technically limited due to poor acoustic windows. The study is technically limited due to patient body habitus. Left Ventricle: The left ventricular chamber size is normal. Mild concentric left ventricular hypertrophy is observed. Global left ventricular wall motion and contractility are within normal limits. Global left ventricular systolic function is normal. The estimated ejection fraction is 55-60%. Abnormal left ventricular diastolic filling is observed, consistent with impaired relaxation. Left Atrium: The left atrial chamber size is normal. Right Ventricle: The right ventricle is not well visualized. The right ventricle is slightly dilated. The right ventricular global systolic function is normal. Right Atrium: The right atrium is not well visualized. The right atrium is mildly dilated. The interatrial septum appears normal. Aortic Valve: The aortic valve leaflets are mildly thickened. Mild aortic leaflet calcification is visualized. Systolic excursion of the aortic valve is normal. There is no evidence of aortic regurgitation. There is no evidence of aortic stenosis. Mitral Valve: The mitral valve leaflets appear myxomatous. The mitral valve leaflets are mildly thickened. Mild mitral leaflet calcification is visualized. There is trace of mitral regurgitation. There is no evidence of mitral stenosis. Tricuspid Valve: The tricuspid valve is not well visualized. The tricuspid valve leaflets are normal. There is trace tricuspid regurgitation. Pulmonic Valve: The pulmonic valve appears normal. There is no evidence of pulmonic regurgitation. There is no pulmonic stenosis. Pericardium: There is no pericardial effusion. Aorta: There is no dilatation of the ascending aorta. There is no dilatation of the aortic root. Venous: The inferior vena cava appears normal in size. Contrast: Definity was used to optimize study. Measurements Chambers MM Name Value Normal Range Ao root diameter (MM) 3 cm (2 - 3.7) LA dimension (AP) MM 3 cm (1.9 - 4) LA:Ao ratio (MM) 1 ratio - AV cusp separation (MM) 1.5 cm (1.5 - 2.6) Chambers 2D Name Value Normal Range IVSd (2D) 1.24 cm (0.6 - 1.1) LVPWd (2D) 1.21 cm (0.6 - 1.1) IVS:LVPW ratio (2D) 1.02 ratio - LVIDd (2D) 3.62 cm (3.7 - 5.6) LVIDs (2D) 2.58 cm (2 - 3.8) LV FS (Teichholz) (2D) 28.7 % - LV FS (cube) (2D) 28.7 % - EF Teichholz (2D) 56.3 % - LA dimension (AP) 2D 3.2 cm (1.9 - 4) Volumes/Mass Name Value Normal Range LA ESV SP 2CH (MOD) 22 ml - Diastolic/Systolic Function Name Value Normal Range MV E-wave Vmax 0.95 m/sec - MV deceleration time 169 msec - MV A-wave Vmax 1.12 m/sec - MV E:A ratio 0.8 ratio - Aortic Valve Name Value Normal Range AV VTI 25.1 cm - AV mean gradient 5 mmHg - LVOT diameter 2 cm - LVOT VTI 20.5 cm - LVOT mean gradient 3 mmHg - SV LVOT 64 ml - JC (continuity VTI) 2.56 cm2 - Mitral Valve Name Value Normal Range MV PHT 52 msec - MVA (PHT) 4.23 cm2 - Pulmonic Valve/Qp:Qs Name Value Normal Range PV acceleration time 77 msec -
[2016-08-07] MEDS ORDERED: NON-FORMULARY (Pravastatin Sodium [Pravastatin] 20 MG) PO SCH (19:15)
[2016-08-07] MEDS ORDERED: FLONASE NS SCH (20:00)
[2016-08-07] MEDS ORDERED: ZOCOR PO SCH (22:00)
[2016-08-07] MEDS ORDERED: CLARITIN PO SCH (22:00)
[2016-08-07] MEDS ORDERED: CLOBETASOL TRANSDERMA SCH (22:00)
[2016-08-07] MEDS ORDERED: NON-FORMULARY (Loratadine 10 MG) PO SCH (22:00)
[2016-08-08] MEDS: NACL 0.9% 1000 ML 1,000 ML IV SCH (02:48)
[2016-08-08 04:00] VITALS: BP 142/79
[2016-08-08] MEDS ORDERED: GLUCOTROL PO SCH (10:00)
[2016-08-08] MEDS ORDERED: ZESTRIL PO SCH (10:00)
[2016-08-08] MEDS ORDERED: BENAZEPRIL 20 MG PO SCH (10:00)
--- NOTE | 2016-08-08 13:50 | Progress Note ---
Assessment and Plan Bilateral Pulmonary embolism s/p EKOS initiated on xarelto for anticoagulation Hypertension Diabetes Echo done reports a technically difficult study. Right heart chambers not well visualized. Normal left ventricular systolic function, ejection fraction 55%. Recommend: Continue anticoagulation for bilateral pulmonary embolism. Otherwise, conservative cardiac management. Subjective Date of service: 08/08/16 Interval history: Patient resting in bed comfortably. He denies chest pain and shortness of breath. Objective Vital Signs Temp Pulse Pulse Pulse Resp BP Pulse Ox 08/08/16 03:59 98.8 F 80 20 142/79 95 08/08/16 02:49 81 24 128/77 08/08/16 02:01 92 H 21 91 08/08/16 00:01 105 H 20 95 08/08/16 00:00 98.9 F 08/07/16 22:01 84 21 94 08/07/16 22:00 88 100 H 17 94 08/07/16 21:26 100 08/07/16 20:01 121/76 95 08/07/16 20:00 99.0 F 08/07/16 18:30 97 H 21 134/72 89 08/07/16 18:15 98 H 23 120/71 92 08/07/16 18:00 96 H 24 132/70 92 08/07/16 17:45 95 H 28 H 133/74 90 08/07/16 17:30 109 H 13 122/71 91 08/07/16 17:15 105 H 25 H 129/70 88 08/07/16 17:00 112 H 29 H 140/72 88 08/07/16 16:45 117 H 17 132/73 88 08/07/16 16:30 95 H 21 122/72 08/07/16 16:25 99 F 08/07/16 16:15 93 H 21 125/70 93 08/07/16 16:00 99 H 29 H 125/73 92 08/07/16 15:48 99 H 25 H 123/76 90 08/07/16 15:46 93 H 23 123/71 91 08/07/16 15:30 93 H 24 123/71 86 08/07/16 15:16 99 H 17 123/71 84 08/07/16 15:00 96 H 25 H 123/71 92 08/07/16 14:46 93 H 21 123/71 91 08/07/16 14:30 95 H 29 H 123/71 85 08/07/16 14:15 103 H 24 123/71 90 08/07/16 14:02 100 H 14 128/74 89 08/07/16 14:00 94 H 103 H 17 128/74 93 - Physical Examination General: No Apparent Distress HEENT: Positive: PERRL Neck: Positive: trachea midline Cardiac: Positive: Reg Rate and Rhythm Lungs: Positive: Decreased Breath Sounds Neuro: Positive: Grossly Intact Extremities: Absent: edema
--- NOTE | 2016-08-08 15:06 | Discharge Summary ---
Providers - Providers Date of Admission: 08/06/16 16:02 Date of discharge: 08/08/16 Attending physician: OSCAR MCDERMOTT 08/06/16 Consult to Cardiac Rehabilitation [CONS] Routine Reason For Exam: Phase I 08/06/16 15:15 Consult to Physician [CONS] Routine Consulting Provider: SALLY MONTGOMERY Reason For Exam: Bilat pulmonary embolism,large Place consult to:: ANSWERING SERVICE Notified:: YES Phone number called:: [phone] If yes, spoke with:: DELFIN Time called:: 18:49 08/06/16 15:21 Consult to Physician [CONS] Routine Consulting Provider: ANI LONDONO Reason For Exam: bilateral PE, may need thrombolysis Place consult to:: ANSWERING SERVICE Notified:: YES If yes, spoke with:: ERIC Time called:: 19:00 08/06/16 15:25 Consult to Physician [CONS] Routine Consulting Provider: YAAKOV HUMMEL Reason For Exam: Chest pain, elevated Troponin. Also has bilat PE Place consult to:: Dr.John Montoya Notified:: YES If yes, spoke with:: DENEEN Time called:: 18:55 Primary care physician: WILDLIFE CONSERVATIONIST Hospitalization Condition: Fair Hospital course: Patient is 66 yo with hypertension, hyperlipidemia, diabetes,sleep apnea on CPAP at night. He presented with chest pain and shortness of breath. CT Angio showed bilateral large pulmonary embolism. He was started on Heprin drip, Vasc and Pulmonology were consulted. He was evaluated by Dr. Cornejo, taken to incinerator plant laborer and had EKOS catheter placement. He was then admitted to ICU, put on Atelplase and heparin. Following day, catheter was removed, he was later transferred to Telemetry. He improved over next few days. Chest pain subsided, shortness of breath resolved, so he was discharged home on Xarelto. Total time spent on discharge, 38 mins Disposition: DISCHARGED TO HOME OR SELFCARE - Discharge Diagnoses (1) Bilateral pulmonary embolism Status: Acute (2) Diabetes mellitus type 2 in nonobese Status: Chronic (3) HTN (hypertension) Status: Chronic Qualifiers: Hypertension type: H (4) Sleep apnea Status: Chronic Qualifiers: Sleep apnea type: S Core Measure Documentation - Palliative Care Palliative Care/ Comfort Measures: Not Applicable - Core Measures Any of the following diagnoses?: DVT/PE - VTE Discharge Requirements Deep Vein Thrombosis/Pulmonary Embolism Present on Admission: Yes Has pt received <5 days of overlap therapy or INR<2.0: Yes Anticoagulant overlap therapy prescribed at discharge: No Contraindication No Overlap Therapy order at DC: Not Indicated (Patient discharged on Xarelto) Exam - Constitutional Vitals: Temp Pulse Resp BP Pulse Ox 98.8 F 80 20 142/79 94 08/08/16 03:59 08/08/16 03:59 08/08/16 03:59 08/08/16 03:59 08/08/16 14:08 Plan Activity: advance as tolerated Diet: low fat, low cholesterol, low salt, diabetic Additional Instructions: 1.Follow up with PCP in 1 week. 2.Follow up with Malcolm Saavedra in 1 week. 3.Follow up with Cherrie Carlisle in 1 week Follow up with: [facility] [Provider Group] - 7 Days SALLY MONTGOMERY MD [Staff Physician] - 7 Days PRIMARY MD FIONA [Primary Care Provider] - 3-5 Days Prescriptions: HYDROcodone/APAP 5-325 [[place] 5-325 mg TAB] 1 each PO Q6H PRN #20 tablet PRN Reason: Pain, Moderate (4-6) Rivaroxaban [Xarelto] 15 mg PO BIDDIAB 20 Days Rivaroxaban [Xarelto] 20 mg PO QDAY #30 tab
--- NOTE | 2016-08-08 16:24 | Progress Note ---
Assessment and Plan 66-year-old male with submassive pulmonary embolism status post thrombolytic therapy with improvement in thrombotic load in the pulmonary arteries. Recommend anticoagulation for at least 6-12 months. Final determination whether anticoagulation can be discontinued should be made by hematology and pulmonology. Patient had an unprovoked episode of pulmonary embolism without risk factors that he can recall. He has been sedentary for multiple years since his prison but never had a thromboembolic event until this episode. No trauma. No long car trips. Consider hematology consult. Provided incentive spirometer to help with breathing because patient has been recumbent for most of the day and likely has dependent atelectasis. Subjective Date of service: 08/08/16 Principal diagnosis: Submassive PE Interval history: Breathing improved, but still has intermittent SOB. Reports intermittent auditory upper respiratory noises. Known sleep apnea. Intermittent nonproductive coughing. Objective - Constitutional Vitals: Vital Signs - 12hr 08/08/16 14:08 O2 Sat by Pulse 94 Oximetry General appearance: Present: no acute distress - EENT Eyes: EOM intact ENT: hearing intact - Respiratory Respiratory effort: accessory muscle use (mild), other (anxious ) Extremities: normal temperature, normal color, abnormal (some right leg pain) - Psychiatric Psychiatric: appropriate mood/affect, other (anxious) - Labs CBC & Chem 7: 08/07/16 10:21 08/07/16 04:46 Labs: Abnormal lab results 08/07/16 08/07/16 08/07/16 Range/Units 07:46 13:18 16:26 POC Glucose 112 H 128 H 158 H (70-105) 08/07/16 08/08/16 Range/Units 21:59 09:50 POC Glucose 134 H 190 H (70-105)
--- NOTE | 2016-08-08 18:28 | Progress Note ---
Assessment and Plan 66 y/o male with bilateral pulmonary emboli 1. Anticoagulation 2. Has sleep apnea, so can follow up with Dr. Huerta. he has been seeing him for years 3. Continue PPV at night at home Subjective Date of service: 08/08/16 Principal diagnosis: Submassive PE Interval history: Being discharged today. Walked in during discharge instructions. Objective Vital Signs - 12hr 08/08/16 14:08 O2 Sat by Pulse 94 Oximetry Constitutional: no acute distress, alert ENT: oropharynx moist Neck: supple Ascultation: Bilateral: diminished breath sounds Percussion: Bilateral: not dull Cardiovascular: regular rate and rhythm CBC and BMP: 08/07/16 10:21 08/07/16 04:46 ABG, PT/INR, D-dimer: PT/INR, D-dimer PT 14.7 Sec. (12.2-14.9) 08/06/16 17:00 INR 1.16 (0.87-1.13) H 08/06/16 17:00 D-Dimer 2013 ng/mlDDU (0-234) H 08/06/16 11:15 Abnormal lab findings: Abnormal Labs 08/06/16 08/06/16 08/06/16 11:07 11:07 11:15 WBC RBC 5.47 H Hgb 17.0 H Hct 51.2 H MCV Plt Count Lymph % (Auto) 10.2 L [place] % (Auto) 7.9 H Lymph # 1.1 L [place] # 0.9 H Seg Neutrophils % 80.7 H Seg Neutrophils # 8.9 H INR APTT D-Dimer 2013 H Heparin Anti-Xa Level Glucose 287 H POC Glucose Calcium Troponin T 0.065 H Ur Specific [place] 08/06/16 08/06/16 08/06/16 14:45 15:00 15:16 WBC RBC Hgb 17.1 H Hct 52.0 H MCV Plt Count Lymph % (Auto) [place] % (Auto) Lymph # [place] # Seg Neutrophils % Seg Neutrophils # INR APTT D-Dimer Heparin Anti-Xa Level Glucose POC Glucose Calcium Troponin T 0.096 H Ur Specific [place] 1.035 H 08/06/16 08/06/16 08/06/16 17:00 17:00 17:00 WBC RBC 5.35 H Hgb 16.7 H Hct 50.4 H MCV Plt Count Lymph % (Auto) [place] % (Auto) 10.4 H Lymph # [place] # 1.1 H Seg Neutrophils % Seg Neutrophils # INR 1.16 H APTT 96.0 H* D-Dimer Heparin Anti-Xa Level Glucose POC Glucose Calcium Troponin T 0.103 H* Ur Specific [place] 08/06/16 08/06/16 08/06/16 17:00 21:10 21:15 WBC 12.4 H RBC 5.36 H Hgb 16.2 H Hct 50.4 H MCV Plt Count Lymph % (Auto) [place] % (Auto) 10.3 H Lymph # [place] # 1.3 H Seg Neutrophils % 71.4 H Seg Neutrophils # 8.8 H INR APTT D-Dimer Heparin Anti-Xa Level 1.07 H Glucose 138 H POC Glucose Calcium Troponin T Ur Specific [place] 08/07/16 08/07/16 08/07/16 04:46 04:46 07:46 WBC RBC Hgb 15.3 H Hct 46.7 H MCV Plt Count Lymph % (Auto) [place] % (Auto) 12.0 H Lymph # [place] # 1.2 H Seg Neutrophils % Seg Neutrophils # INR APTT D-Dimer Heparin Anti-Xa Level Glucose 140 H POC Glucose 112 H Calcium 7.9 L Troponin T Ur Specific [place] 08/07/16 08/07/16 08/07/16 10:21 13:18 16:26 WBC RBC 5.16 H Hgb 15.7 H Hct 48.8 H MCV 95 H Plt Count 137 L Lymph % (Auto) [place] % (Auto) 11.1 H Lymph # [place] # 1.0 H Seg Neutrophils % Seg Neutrophils # INR APTT D-Dimer Heparin Anti-Xa Level Glucose POC Glucose 128 H 158 H Calcium Troponin T Ur Specific [place] 08/07/16 08/08/16 21:59 09:50 WBC RBC Hgb Hct MCV Plt Count Lymph % (Auto) [place] % (Auto) Lymph # [place] # Seg Neutrophils % Seg Neutrophils # INR APTT D-Dimer Heparin Anti-Xa Level Glucose POC Glucose 134 H 190 H Calcium Troponin T Ur Specific [place]
--- NOTE | 2016-08-20 10:09 | Query- Dyspnea ---
Willie Arenas Date:_08/20/16 Water Safety Instructor/CDS:_[place]/Jaron Griffin Phone#:_[phone] Exercise your independent professional judgment when responding to query. Questions asked do not imply a particular answer is desired or expected. We greatly appreciate your clarification on this issue. Clinical Documentation States: 66 Y/O Male admitted on 08/06/16 with history of DM, HTN, Sleep apnea presents with 1 day history of chest pain, shortness of breath and near syncope. Clinical Findings Show: CTA chest showed large bilateral Pulmonary Embolism SaO2:91% on 2 liters oxygen nasal canula RR:25 Accessory muscle use Please clarify if the patient had any of the following conditions based on the above clinical findings: [x ] Respiratory Failure [x ] Acute [ ] Acute on Chronic [ ] Chronic [ ] Respiratory failure due to trauma [ ] Acute Respiratory Distress Syndrome [ ] Other: [ ] Unable to determine [ ] Comment/Explanation: Present on Admission: [x ] Yes (Y) [ ] Clinically undeterminable (W) [ ] No (N) Please also document response in your Progress Notes and/or Discharge Summary and indicate if the condition was present on admission. EMILE
== END 2016-08-08 18:30 | disposition home or self-care (01) | DRG 175 ==
LOC: CATH 10:28 → ED 10:28 → CC1 16:02 → EDSTATUS 16:48 → 4A 08-08 03:28
PROVIDERS: ADMIT Internal Medicine; ATTEND Internal Medicine
PROC: 02HQ33Z Insertion of Infusion Device into Right Pulmonary Artery, Percutaneous Approach (ICD-10-PCS; principal; 2016-08-06)
PROC: 3E06317 Introduction of Other Thrombolytic into Central Artery, Percutaneous Approach (ICD-10-PCS; 2016-08-06)
PROC: 02HR33Z Insertion of Infusion Device into Left Pulmonary Artery, Percutaneous Approach (ICD-10-PCS; 2016-08-06)
PROC: 3E06317 Introduction of Other Thrombolytic into Central Artery, Percutaneous Approach (ICD-10-PCS; 2016-08-06)
PROC: 02PYX3Z Removal of Infusion Device from Great Vessel, External Approach (ICD-10-PCS; 2016-08-07)
PROC: B3101ZZ Fluoroscopy of Thoracic Aorta using Low Osmolar Contrast (ICD-10-PCS; 2016-08-07)
DX: I26.99 Other pulmonary embolism without acute cor pulmonale (principal); J96.00 Acute respiratory failure, unspecified whether with hypoxia or hypercapnia; E11.9 Type 2 diabetes mellitus without complications; R07.9 Chest pain, unspecified; I10 Essential (primary) hypertension; E78.5 Hyperlipidemia, unspecified; G47.30 Sleep apnea, unspecified; L40.9 Psoriasis, unspecified; Z80.9 Family history of malignant neoplasm, unspecified
CPT/HCPCS: 36415; 37211; 37214; 71010; 71275; 76937; 80048; 80061; 80307; 81001; 82550; 82553; 82962; 83880; 84484; 85014; 85018; 85025; 85049; 85379; 85384; 85520; 85610; 85730; 93005; 93010; 93306; 94760; C1757; C1769; C1894; J0690; J1644; J2250; J2270; J2405; J2997; J3010; J7030; J7040; Q9967

== ENCOUNTER 2018-10-16 09:07 | Outpatient (CLI) | payer MEDICARE ==
[2018-10-16 10:20] LABS: Hematocrit 47.4 % (35.5-45.6); Mean Corpuscular HGB Conc 34 % (32-34); Mean Corpuscular Volume 94 fl (84-94); Platelet Count 229 K/mm3 (140-440); Red Blood Count 5.03 M/mm3 (3.65-5.03); Red Cell Distribution Width 13.4 % (13.2-15.2)
[2018-10-16 10:32] LABS: Alanine Aminotransferase 41 units/L (7-56); Albumin 4.2 g/dL (3.9-5); BUN/Creatinine Ratio 13; Blood Urea Nitrogen 12 mg/dL (9-20); Calcium 9.2 mg/dL (8.4-10.2); Chol/HDL Ratio 2.77 %; HDL Cholesterol 49 mg/dL (40-59); Hemolysis Index 4; LDL Cholesterol,Direct 79 mg/dL (50-130)
[2018-10-21 06:21] LABS: Vitamin D, 25-OH, D2 SEE SCANNED RESULTS
== END 2018-10-16 09:08 | disposition home or self-care (01) ==
LOC: LAB 09:07
PROVIDERS: ATTEND Internal Medicine
DX: I10 Essential (primary) hypertension (principal); E78.2 Mixed hyperlipidemia; E11.9 Type 2 diabetes mellitus without complications; E78.00 Pure hypercholesterolemia, unspecified; J44.9 Chronic obstructive pulmonary disease, unspecified; Z79.899 Other long term (current) drug therapy
CPT/HCPCS: 36415; 80053; 80061; 82306; 82607; 83036; 84443; 85027

== ENCOUNTER 2019-03-05 10:13 | Outpatient (CLI) | payer MEDICARE ==
[2019-03-05 11:30] LABS: Chol/HDL Ratio 2.38 %
== END 2019-03-05 10:14 | disposition home or self-care (01) ==
LOC: LAB 10:13
PROVIDERS: ATTEND Internal Medicine
DX: E78.2 Mixed hyperlipidemia (principal); E11.9 Type 2 diabetes mellitus without complications; J44.9 Chronic obstructive pulmonary disease, unspecified; I10 Essential (primary) hypertension; E78.00 Pure hypercholesterolemia, unspecified
CPT/HCPCS: 36415; 80061; 83036

== ENCOUNTER 2019-07-17 09:21 | Outpatient (CLI) | payer MEDICARE ==
[2019-07-17 13:53] LABS: Creatinine,Urine 205.2 mg/dL (0.1-20.0)
[2019-07-17 13:54] LABS: Microalbumin/Creatinine Ratio 5.8 ug/mg
[2019-07-21 11:09] LABS: Vitamin D, 25-OH, D2 <4 ng/mL
== END 2019-07-17 09:22 | disposition home or self-care (01) ==
LOC: LAB 09:21
PROVIDERS: ATTEND Internal Medicine
DX: E11.9 Type 2 diabetes mellitus without complications (principal); E78.2 Mixed hyperlipidemia; I10 Essential (primary) hypertension; Z79.899 Other long term (current) drug therapy
CPT/HCPCS: 36415; 82043; 82306; 83036